=== PATIENT | female | born 1975 | race Caucasian/White ===

== ENCOUNTER 2023-10-23 03:22 | Emergency (ER) | payer MEDICAID ==
[~2023-10-23] VITALS: Ht 167.6 cm; Wt 153.8 kg
[2023-10-23 03:35] VITALS: O2SAT 97
[2023-10-23] MEDS ORDERED: ACETAMINOPHEN 500MG TABLET PO ONE (05:00)
[2023-10-23] MEDS: ACETAMINOPHEN 500MG TABLET PO NR (05:15)
[2023-10-23] MEDS ORDERED: TOPUD PO (06:19)
[2023-10-23 07:50] VITALS: BP 125/72; PULSE 82; RESP 16; TEMP 98
== END 2023-10-23 07:56 | disposition home or self-care (01) ==
LOC: ER 03:22
DX: S92.322A Displaced fracture of second metatarsal bone, left foot, initial encounter for closed fracture (principal); E11.9 Type 2 diabetes mellitus without complications; Z98.890 Other specified postprocedural states; W18.39XA Other fall on same level, initial encounter; Y93.89 Activity, other specified; Y92.89 Other specified places as the place of occurrence of the external cause; Y99.8 Other external cause status
CPT/HCPCS: 73560; 73630; 29515; 99284; Z7610